=== PATIENT | female | born 1950 | race African-American/Black ===

== ENCOUNTER 2025-09-27 11:01 | Emergency (ER) | payer MEDICARE, MEDICAID ==
[2025-09-27 12:24] LABS: Hematocrit 37.2 % (36.0-47.0); Hemoglobin 11.0 g/dL (12.0-16.0); Mean Corpuscular Hemoglobin 25.8 pg (27.0-31.0); Mean Corpuscular Volume 86.9 fl (78.0-98.0); Platelet Count 131 10x3/uL (130-400); Red Blood Cell (RBC) Count 4.28 mill/uL (4.20-5.40); White Blood Cell (WBC) Count 3.5 10x3/uL (4.8-10.8)
[2025-09-27 12:28] LABS: Glucose, Urine (Dipstick) Negative (Negative); Leukocyte Negative (Negative); Protein, Urine (Dipstick) Negative (Neg-Trace); Specific Gravity, Urine 1.015 (1.005-1.030)
[2025-09-27 12:36] LABS: ALT (SGPT) 11 U/L (Less than 34); AST (SGOT) 24 U/L (11-34); Albumin 4.0 g/dL (3.1-4.5); Alkaline Phosphatase 60 U/L (40-110); Anion Gap 17 mmol/L (10-20); BUN (Urea Nitrogen) 25 mg/dL (9.8-20.1); Bilirubin, Total 1.0 mg/dL (0.3-1.2); CK (CPK) 43 U/L (29-168); Calc. Creatinine Clearance 0 mL/min (70-130); Calcium 9.6 mg/dL (7.8-10.44); Carbon Dioxide 22 mmol/L (23-31); Chloride 106 mmol/L (98-107); Globulin 2.3 g/dL (2.4-3.5); Glucose 74 mg/dL (83-110); Magnesium 1.7 mg/dL (1.6-2.6); Potassium 4.8 mmol/L (3.5-5.1); Sodium 140 mmol/L (136-145); Troponin I 0.046 ng/mL (< 0.028)
[2025-09-27 12:36] LABS: Bacteria/HPF Rare-Few HPF (None Seen); CAUTI Indications for Culture Dysuria,urgency,freq; RBC/HPF 0-3 HPF (0-3); WBC/HPF 0-3 HPF (0-3)
[2025-09-27 12:37] LABS: Urine Culture Reflex No No
[2025-09-27 12:42] LABS: MDiff Complete? YES
[2025-09-27 12:44] LABS: Platelet Adequacy Comment Appears Adequate
[2025-09-27 14:42] LABS: Troponin I 0.030 ng/mL (< 0.028)
[2025-09-27] MEDS ORDERED: Aspirin Chewable 81 MG TAB ONE (16:07)
== END 2025-09-27 21:29 | disposition short-term general hospital (02) ==
LOC: MADERS 11:01
DX: R55 Syncope and collapse (principal); S40.011A Contusion of right shoulder, initial encounter; R53.1 Weakness; E86.0 Dehydration; R79.89 Other specified abnormal findings of blood chemistry; I10 Essential (primary) hypertension; Z95.5 Presence of coronary angioplasty implant and graft; Z79.899 Other long term (current) drug therapy; W19.XXXA Unspecified fall, initial encounter
CPT/HCPCS: 36415; 70450; 71045; 71250; 72125; 72170; 74177; 80053; 81001; 82550; 83735; 84484; 85025; 87428; 93005